=== PATIENT | male | born 1980 | race Caucasian/White ===

== ENCOUNTER 2019-08-15 08:00 | Outpatient (CLI) | payer OTHER | END 2019-08-15 23:59 | disposition home or self-care (01) | LOC: LAB.WCP 08:00 | PROVIDERS: ATTEND Physician Assistant Medical | DX: N50.812 Left testicular pain (principal) | CPT/HCPCS: 87086 ==

== ENCOUNTER 2019-08-15 14:18 | Outpatient (CLI) | payer OTHER ==
--- NOTE | 2019-08-15 15:52 | Ultrasound Report ---
Reason: LEFT TESTICULAR PAIN Procedure Date: 08/15/2019 Accession Number: [id number] / [id number] Procedure: US - Testicle CPT Code: Final Report FULL RESULT: EXAM: [facility]OTAL ULTRASOUND EXAM DATE: 08/15/2019 02:21 PM. CLINICAL HISTORY: LEFT TESTICULAR PAIN. COMPARISON: None. TECHNIQUE: Real-time scanning was performed with static images obtained. Color-flow images were utilized. FINDINGS: Right: Testis: 4.9 x 2.6 x 3.1 cm. Normal size and echotexture. No mass, calcification, or abnormal blood flow. Epididymis: 0.9 x 0.7 x 1.2 cm. A anechoic 0.7 x 0.6 x 0.5 cm cyst is present in the epididymal head. Otherwise normal size and echotexture. No abnormal blood flow. Hydrocele: None. Varicocele: None. Left: Testis: 4.8 x 2.8 x 3.7 cm. Normal size and echotexture. No mass, calcification, or abnormal blood flow. Epididymis: 1.3 x 0.9 x 0.7 cm. A large anechoic, avascular lobular cystic lesion is present in the region of the epididymal head measuring 4.6 x 2.2 x 2.3 cm which could reflect an epididymal cyst. This is noted by director of leadership development to be palpable. The epididymal tail appears heterogeneous and hyperemic suggesting epididymitis. Hydrocele: None. Varicocele: None. IMPRESSION: 1. Findings most compatible with epididymitis involving the LEFT epididymal tail. If symptoms do not fit clinically, follow-up after resolution of symptoms can be considered to exclude underlying lesions. 2. Large 4.6 cm palpable simple cystic lesion in the region of the LEFT epididymal head, possibly a epididymal cyst. 3. Small RIGHT epididymal head cyst. [facility]
== END 2019-08-15 14:19 | disposition home or self-care (01) ==
LOC: DI 14:18
PROVIDERS: ATTEND Physician Assistant Medical
DX: N50.812 Left testicular pain (principal); N50.3 Cyst of epididymis
CPT/HCPCS: 76870